=== PATIENT | female | born 1945 | race African-American/Black ===

== ENCOUNTER 2016-05-20 08:50 | Emergency (ER) | payer MEDICARE, MEDICAID ==
[~2016-05-20] VITALS: Ht 162.6 cm; Wt 68.0 kg
[2016-05-20 09:25] VITALS: BP 137/62
[2016-05-20] MEDS: ACETAMINOPHEN 325MG TABLET PO ONE ×2 (10:33→11:04)
== END 2016-05-20 12:31 | disposition home or self-care (01) ==
LOC: ER 09:36
DX: M19.90 Unspecified osteoarthritis, unspecified site (principal); E11.9 Type 2 diabetes mellitus without complications; E78.00 Pure hypercholesterolemia, unspecified; J45.909 Unspecified asthma, uncomplicated; I10 Essential (primary) hypertension; M10.9 Gout, unspecified
CPT/HCPCS: 73070; 99284

== ENCOUNTER → 2016-08-27 | Outpatient (CLI) | payer MEDICARE, MEDICAID | END | disposition home or self-care (01) | LOC: MAMMO 09:59 | PROVIDERS: ATTEND Specialist | DX: Z12.31 Encounter for screening mammogram for malignant neoplasm of breast (principal) | CPT/HCPCS: 82962; G0202 ==

== ENCOUNTER 2016-10-25 17:26 | Emergency (ER) | payer MEDICARE, MEDICAID ==
[~2016-10-25] VITALS: Ht 160 cm; Wt 68.0 kg
[2016-10-25 18:48] LABS: BASOPHILS % 0.9 % (0.0-2.0); EOSINOPHILS % 0.8 % (0.0-5.0); HEMATOCRIT. 38.1 % (36.0-48.0); HEMOGLOBIN. 12.9 g/dL (12.0-16.0); LYMPHOCYTES % 41.4 % (20.0-50.0); MEAN CORPUSCULAR HEMOGLOBIN 30.9 pg (28.0-32.0); MEAN CORPUSCULAR VOLUME 91.2 fL (81.0-99.0); MEAN PLATELET VOLUME 8.8 fl (7.4-10.4); MONOCYTES % 7.5 % (2.0-8.0); NEUTROPHILS % 49.4 % (40.0-76.0); PLATELET 224 x1000/uL (130-400); RED BLOOD CELL COUNT 4.18 mill/uL (4.2-5.4); RED CELL DISTRIBUTION WIDTH 14.1 % (11.6-14.6)
[2016-10-25 18:51] LABS: CHLORIDE 108 mEq/L (98-107)
[2016-10-25 18:53] LABS: CARBON DIOXIDE 23 mEq/L (21-32)
[2016-10-25 19:01] LABS: TROPONIN I < 0.02 ng/mL (0.00-0.04)
[2016-10-25 20:15] VITALS: BP 128/72
== END 2016-10-25 20:20 | disposition home or self-care (01) ==
LOC: ER 17:52
DX: R06.00 Dyspnea, unspecified (principal); I10 Essential (primary) hypertension; E11.9 Type 2 diabetes mellitus without complications; E78.00 Pure hypercholesterolemia, unspecified; I25.2 Old myocardial infarction; J45.909 Unspecified asthma, uncomplicated; Z86.73 Personal history of transient ischemic attack (TIA), and cerebral infarction without residual deficits; Z88.8 Allergy status to other drugs, medicaments and biological substances
CPT/HCPCS: 36415; 71010; 80053; 83690; 83880; 84484; 85025; 85610; 85730; 93005; 99285

== ENCOUNTER → 2016-11-20 | Outpatient (CLI) | payer MEDICARE, MEDICAID ==
[~2016-11-20] MED LIST: BARIUM SULFATE 450ML ORAL SUSP ONE
== END | disposition home or self-care (01) ==
LOC: CT 08:12
PROVIDERS: ATTEND Internal Medicine Gastroenterology
DX: K86.89 Other specified diseases of pancreas (principal); M47.817 Spondylosis without myelopathy or radiculopathy, lumbosacral region; I25.10 Atherosclerotic heart disease of native coronary artery without angina pectoris; K56.69 Other intestinal obstruction
CPT/HCPCS: 74176

== ENCOUNTER → 2017-08-28 | Outpatient (CLI) | payer MEDICARE, MEDICAID | END | disposition home or self-care (01) | LOC: MAMMO 09:40 | PROVIDERS: ATTEND Specialist | DX: Z12.31 Encounter for screening mammogram for malignant neoplasm of breast (principal) | CPT/HCPCS: 77067 ==

== ENCOUNTER → 2017-10-23 | Outpatient (CLI) | payer MEDICARE, MEDICAID | END | disposition home or self-care (01) | LOC: RAD 09:39 | PROVIDERS: ATTEND Specialist | DX: J84.10 Pulmonary fibrosis, unspecified (principal) | CPT/HCPCS: 71046 ==

== ENCOUNTER 2018-05-19 06:00 | Emergency (ER) | payer MEDICARE, MEDICAID ==
[~2018-05-19] VITALS: Ht 160 cm; Wt 68.0 kg
[2018-05-19] MEDS ORDERED: ALBUTEROL (0.083%) 2.5MG/3ML NEB HHN STA (06:47)
[2018-05-19] MEDS ORDERED: IPRATROPIUM BROMIDE (0.02%) 0.5MG/2.5ML NEB HHN STA (06:47)
[2018-05-19] MEDS ORDERED: METHYLPREDNISOLONE SOD SUCC 125 MG/2 ML VIAL IV STA (06:47)
[2018-05-19] MEDS ORDERED: MAGNESIUM 2 G PREMIX 50 ML IV ONE (07:00)
[2018-05-19] MEDS ORDERED: ACETAMINOPHEN 325MG TABLET PO ONE (07:00)
[2018-05-19 07:16] LABS: BASOPHILS % 0.8 % (0.0-2.0); EOSINOPHILS % 2.5 % (0.0-5.0); HEMATOCRIT. 35.6 % (36.0-48.0); HEMOGLOBIN. 11.6 g/dL (12.0-16.0); LYMPHOCYTES % 29.3 % (20.0-50.0); MEAN CORPUSCULAR HEMOGLOBIN 30.4 pg (28.0-32.0); MEAN CORPUSCULAR VOLUME 92.8 fL (81.0-99.0); MEAN PLATELET VOLUME 8.5 fl (7.4-10.4); MONOCYTES % 6.6 % (2.0-8.0); NEUTROPHILS % 60.8 % (40.0-76.0); PLATELET 222 x1000/uL (130-400); RED BLOOD CELL COUNT 3.83 mill/uL (4.2-5.4); RED CELL DISTRIBUTION WIDTH 13.6 % (11.6-14.6)
[2018-05-19 07:21] LABS: CHLORIDE 111 mEq/L (98-107)
[2018-05-19 09:30] VITALS: BP 127/76
== END 2018-05-19 09:48 | disposition home or self-care (01) ==
LOC: ER 06:00
DX: J44.1 Chronic obstructive pulmonary disease with (acute) exacerbation (principal); J98.01 Acute bronchospasm; J06.9 Acute upper respiratory infection, unspecified; B34.9 Viral infection, unspecified; R51 Headache; D64.9 Anemia, unspecified; E11.9 Type 2 diabetes mellitus without complications; E78.00 Pure hypercholesterolemia, unspecified; I10 Essential (primary) hypertension; I25.2 Old myocardial infarction; Z88.8 Allergy status to other drugs, medicaments and biological substances; Z86.73 Personal history of transient ischemic attack (TIA), and cerebral infarction without residual deficits
CPT/HCPCS: 36415; 71045; 80053; 82962; 85025; 93005; 94644; 96365; 96375; 99285; J2930; J3475; J7611

== ENCOUNTER → 2018-12-01 | Outpatient (CLI) | payer MEDICARE, MEDICAID | END | disposition home or self-care (01) | LOC: RAD 08:28 | PROVIDERS: ATTEND Specialist | DX: R91.8 Other nonspecific abnormal finding of lung field (principal) | CPT/HCPCS: 71046 ==

== ENCOUNTER → 2021-01-14 | Day surgery (SDC) | payer MEDICARE, MEDICAID ==
[~2021-01-14] VITALS: Ht 160 cm; Wt 68.0 kg
[~2021-01-14] MED LIST changes: +ACETAMINOPHEN 500MG TABLET ONE; +AMLO5TAB88 PO; +BACITRACIN 15GM TUBE TOP ONE; -BARIUM SULFATE 450ML ORAL SUSP ONE; +BUPIVACAINE HCL/PF 0.5% (5MG/ML) 10ML ONE; +CEFAZOLIN SODIUM 1000MG/VIAL ONE; +DEXAMETHASONE 4MG/ML 1ML VIAL ONE; +EPHEDRINE SULFATE 50MG/ML VIAL ONE; +FENTANYL CITRATE/PF 50MCG/ML 2ML VIAL IV PRN; +FENTANYL CITRATE/PF 50MCG/ML 2ML VIAL ONE; +GABA-529 PO; +GENTAMICIN SULF 40MG/ML 2ML VIAL ONE; +HYDROMORPHONE HCL/PF 2MG/ML CPJ IV PRN; +KETOROLAC 30MG/ML VIAL ONE; +LEVO75TA7 PO; +LIDOCAINE HCL 1% 10 MG/ML 10ML VIAL ONE; +METO-396 PO; +PITA2TAB2 PO; +PROPOFOL 200MG/20ML VIAL IV ONE; +SEMA0.25 SQ; +TRIAMCINOLONE ACETONIDE 40MG/ML 1ML VIAL ONE
== END | disposition home or self-care (01) ==
LOC: OR 11:06
PROVIDERS: ATTEND Podiatrist Foot & Ankle Surgery
DX: M21.612 Bunion of left foot (principal); I10 Essential (primary) hypertension; E03.9 Hypothyroidism, unspecified; E11.9 Type 2 diabetes mellitus without complications; E78.00 Pure hypercholesterolemia, unspecified; Z79.84 Long term (current) use of oral hypoglycemic drugs; Z79.899 Other long term (current) drug therapy; Z98.890 Other specified postprocedural states; Z20.822 Contact with and (suspected) exposure to COVID-19
CPT/HCPCS: 28296; 73630; 82962; 83036; 87426; 88305; 88311; J0690; J1100; J1885; J2704; J3010; J3301; J3490; J1580

== ENCOUNTER → 2022-11-26 | Outpatient (CLI) | payer MEDICARE, MEDICAID ==
[~2022-11-26] MED LIST changes: -ACETAMINOPHEN 500MG TABLET ONE; -BACITRACIN 15GM TUBE TOP ONE; -BUPIVACAINE HCL/PF 0.5% (5MG/ML) 10ML ONE; -CEFAZOLIN SODIUM 1000MG/VIAL ONE; -DEXAMETHASONE 4MG/ML 1ML VIAL ONE; -EPHEDRINE SULFATE 50MG/ML VIAL ONE; -FENTANYL CITRATE/PF 50MCG/ML 2ML VIAL IV PRN; -FENTANYL CITRATE/PF 50MCG/ML 2ML VIAL ONE; -GENTAMICIN SULF 40MG/ML 2ML VIAL ONE; -HYDROMORPHONE HCL/PF 2MG/ML CPJ IV PRN; -KETOROLAC 30MG/ML VIAL ONE; -LIDOCAINE HCL 1% 10 MG/ML 10ML VIAL ONE; -PROPOFOL 200MG/20ML VIAL IV ONE; -TRIAMCINOLONE ACETONIDE 40MG/ML 1ML VIAL ONE
== END | disposition home or self-care (01) ==
LOC: MRI 08:05
PROVIDERS: ATTEND Internal Medicine Gastroenterology
DX: K85.90 Acute pancreatitis without necrosis or infection, unspecified (principal)
CPT/HCPCS: 74181

== ENCOUNTER 2023-12-17 08:11 | Emergency (ER) | payer MEDICARE, MEDICAID ==
[~2023-12-17] VITALS: Ht 165.1 cm; Wt 85.0 kg
[2023-12-17 08:14] VITALS: O2SAT 99
[2023-12-17 08:45] LABS: HEMOGLOBIN. 12.2 g/dL (12.0-16.0); PLATELET 217 x1000/uL (130-400)
[2023-12-17 08:49] LABS: BASOPHILS % 0.4 % (0.0-2.0); EOSINOPHILS % 2.9 % (0.0-5.0); HEMATOCRIT. 36.2 % (36.0-48.0); LYMPHOCYTES % 37.8 % (20.0-50.0); MEAN CORPUSCULAR HEMOGLOBIN 31.2 pg (28.0-32.0); MEAN CORPUSCULAR HGB CONC 33.7 g/dL (31.0-37.0); MEAN CORPUSCULAR VOLUME 92.6 fL (81.0-99.0); MEAN PLATELET VOLUME 7.9 fl (7.4-10.4); MONOCYTES % 4.6 % (2.0-8.0); NEUTROPHILS % 54.3 % (40.0-76.0); RED BLOOD CELL COUNT 3.91 mill/uL (4.2-5.4); RED CELL DISTRIBUTION WIDTH 13.7 % (11.6-14.6); WHITE BLOOD COUNT 6.3 x1000/uL (4.5-11.0)
[2023-12-17 08:57] LABS: DIFFERENTIAL COMMENT 1
[2023-12-17 08:59] LABS: POTASSIUM 4.6 mEq/L (3.5-5.1)
[2023-12-17 09:01] LABS: CALCIUM 9.5 mg/dL (8.7-10.4)
[2023-12-17 09:05] LABS: CREATININE 1.1 mg/dL (0.6-1.0)
[2023-12-17 09:09] VITALS: TEMP 98.2
[2023-12-17] MEDS: AMLODIPINE 10MG TABLET PO ONE (09:09)
[2023-12-17] MEDS: ACETAMINOPHEN 325MG TABLET PO ONE (09:09)
[2023-12-17] MEDS ORDERED: HYDR50TA40 MT (10:08)
[2023-12-17] MEDS: IBUPROFEN 600MG TABLET PO ONE (10:34)
[2023-12-17 10:43] VITALS: BP 169/70; PULSE 75; RESP 19; O2SAT 99
== END 2023-12-17 10:44 | disposition home or self-care (01) ==
LOC: ER 08:11
DX: I16.0 Hypertensive urgency (principal); I10 Essential (primary) hypertension; E11.9 Type 2 diabetes mellitus without complications; E78.00 Pure hypercholesterolemia, unspecified; J45.909 Unspecified asthma, uncomplicated; Z86.73 Personal history of transient ischemic attack (TIA), and cerebral infarction without residual deficits; Z79.899 Other long term (current) drug therapy; Z79.85 Long-term (current) use of injectable non-insulin antidiabetic drugs
CPT/HCPCS: 36415; 80048; 85025; 93005; 99284

== ENCOUNTER 2024-06-15 02:28 | Emergency (ER) | payer MEDICARE, MEDICAID ==
[~2024-06-15 02:28] MED LIST changes: +BACL-141 GT; +BRIM15DR2 EACHEYE; +CETI10TA6 MT; +CYCL30DR EACHEYE; +ESCI-7; +FURO40TA5 MT; +HYDR-3782 MT; +HYDR50TA40 MT; +MAGN400T26 PO
[2024-06-15 03:27] LABS: EOSINOPHILS % 1.9 % (0.0-5.0); HEMATOCRIT. 31.2 % (36.0-48.0); HEMOGLOBIN. 10.1 g/dL (12.0-16.0); LYMPHOCYTES % 40.5 % (20.0-50.0); MEAN CORPUSCULAR HEMOGLOBIN 30.9 pg (28.0-32.0); MEAN CORPUSCULAR HGB CONC 32.3 g/dL (31.0-37.0); MEAN CORPUSCULAR VOLUME 95.7 fL (81.0-99.0); MEAN PLATELET VOLUME 8.7 fl (7.4-10.4); NEUTROPHILS % 49.6 % (40.0-76.0); PLATELET 242 x1000/uL (130-400); RED BLOOD CELL COUNT 3.26 mill/uL (4.2-5.4); RED CELL DISTRIBUTION WIDTH 16.3 % (11.6-14.6); WHITE BLOOD COUNT 6.5 x1000/uL (4.5-11.0)
[2024-06-15 03:47] LABS: CHLORIDE 110 mEq/L (98-107); SODIUM 141 mEq/L (136-145)
[2024-06-15 03:48] LABS: CALCIUM 9.1 mg/dL (8.7-10.4); CARBON DIOXIDE 28 mEq/L (21-32)
[2024-06-15 03:53] LABS: GLUCOSE 192 mg/dL (70-105); TROPONIN I HIGH SENSITIVITY 12 ng/L (3.0-34); UREA NITROGEN BLOOD 23 mg/dL (9-23)
[2024-06-15] MEDS: DIPHENHYDRAMINE 50MG/ML VIAL IV ONE (03:53)
[2024-06-15] MEDS: CLONIDINE 0.1MG TABLET PO ONE (03:53)
[2024-06-15] MEDS: LABETALOL 5MG/ML 4ML INJ IV ONE (03:53)
[2024-06-15] MEDS: METOCLOPRAMIDE HCL 10MG/2ML VIAL IV ONE (03:53)
[2024-06-15] MEDS: SODIUM CHLORIDE 0.9% 1,000 ML IV ONE (03:53)
[2024-06-15] MEDS: KETOROLAC 15MG/ML VIAL IV ONE (03:53)
[2024-06-15 03:58] VITALS: TEMP 36.7
[2024-06-15 04:37] VITALS: BP 165/64; PULSE 79; RESP 17; O2SAT 100
== END 2024-06-15 04:48 | disposition home or self-care (01) ==
LOC: ER 02:28
DX: I11.0 Hypertensive heart disease with heart failure (principal); I50.9 Heart failure, unspecified; E11.9 Type 2 diabetes mellitus without complications; Z88.8 Allergy status to other drugs, medicaments and biological substances; Z79.899 Other long term (current) drug therapy; Z79.890 Hormone replacement therapy; Z79.85 Long-term (current) use of injectable non-insulin antidiabetic drugs; Z79.621 Long term (current) use of calcineurin inhibitor; Z98.890 Other specified postprocedural states
CPT/HCPCS: 99284; 96374; 96375; 80048; 85025; 84484; 36415; 93005; J1885; J1200; J3490; J2765

== ENCOUNTER 2024-06-18 07:19 | Emergency (ER) | payer MEDICARE, MEDICAID ==
[~2024-06-18] VITALS: Ht 167.6 cm; Wt 68.0 kg
[2024-06-18 07:29] VITALS: O2SAT 99
[2024-06-18 08:23] LABS: BASOPHILS % 1.1 % (0.0-2.0); EOSINOPHILS % 3.4 % (0.0-5.0); HEMATOCRIT. 32.4 % (36.0-48.0); HEMOGLOBIN. 10.9 g/dL (12.0-16.0); LYMPHOCYTES % 39.3 % (20.0-50.0); MEAN CORPUSCULAR HEMOGLOBIN 31.6 pg (28.0-32.0); MEAN CORPUSCULAR HGB CONC 33.7 g/dL (31.0-37.0); MEAN CORPUSCULAR VOLUME 93.9 fL (81.0-99.0); MEAN PLATELET VOLUME 8.6 fl (7.4-10.4); MONOCYTES % 6.9 % (2.0-8.0); NEUTROPHILS % 49.3 % (40.0-76.0); PLATELET 263 x1000/uL (130-400); RED BLOOD CELL COUNT 3.45 mill/uL (4.2-5.4); RED CELL DISTRIBUTION WIDTH 16.2 % (11.6-14.6); WHITE BLOOD COUNT 5.2 x1000/uL (4.5-11.0)
[2024-06-18] MEDS: ACETAMINOPHEN 500MG TABLET PO NR (08:27)
[2024-06-18 08:32] LABS: CHLORIDE 112 mEq/L (98-107); POTASSIUM 4.3 mEq/L (3.5-5.1); SODIUM 142 mEq/L (136-145)
[2024-06-18 08:33] LABS: CARBON DIOXIDE 25 mEq/L (21-32)
[2024-06-18 08:34] LABS: CALCIUM 8.7 mg/dL (8.7-10.4)
[2024-06-18 08:39] LABS: GLUCOSE 210 mg/dL (70-105); UREA NITROGEN BLOOD 18 mg/dL (9-23)
[2024-06-18] MEDS: HYDRALAZINE HCL 50MG TABLET PO ONE (08:56)
[2024-06-18 08:57] VITALS: BP 158/72; PULSE 72; RESP 16; TEMP 36.8; O2SAT 99
[2024-06-18] MEDS: METOPROLOL SUCCINATE 50MG ER TABLET PO STA (08:57)
[2024-06-18 09:26] LABS: TROPONIN I HIGH SENSITIVITY 9 ng/L (3.0-34)
== END 2024-06-18 09:05 | disposition home or self-care (01) ==
LOC: ER 07:19
DX: R51.9 Headache, unspecified (principal); I10 Essential (primary) hypertension; E03.9 Hypothyroidism, unspecified; E11.9 Type 2 diabetes mellitus without complications; Z79.621 Long term (current) use of calcineurin inhibitor; Z79.85 Long-term (current) use of injectable non-insulin antidiabetic drugs; Z79.890 Hormone replacement therapy; Z79.899 Other long term (current) drug therapy; Z88.8 Allergy status to other drugs, medicaments and biological substances
CPT/HCPCS: 36415; 71045; 80048; 83880; 84484; 85025; 93005; 99285

== ENCOUNTER 2024-07-06 16:24 | Emergency (ER) | payer MEDICARE, MEDICAID ==
[~2024-07-06] VITALS: Ht 157.5 cm; Wt 61.2 kg
[2024-07-06 16:30] VITALS: O2SAT 99
[2024-07-06 16:57] LABS: CLARITY URINE CLEAR (CLEAR); COLOR URINE YELLOW (YELLOW); GLUCOSE URINE NEGATIVE (NEGATIVE); KETONES URINE NEGATIVE (NEGATIVE); LEUKOCYTE ESTERASE URINE NEGATIVE (NEGATIVE); NITRITE URINE NEGATIVE (NEGATIVE); OCCULT BLOOD URINE NEGATIVE (NEGATIVE); PH URINE 6.5 (4.5-8.0); PROTEIN URINE 3+ (NEGATIVE); SPECIFIC GRAVITY URINE 1.005 (1.005-1.030); UROBILINOGEN URINE 0.2 E.U./dL (0.2-1.0)
[2024-07-06 17:10] LABS: BACTERIA URINE TRACE; SQUAMOUS EPITHELIAL CELL URINE 1+ /lpf (RARE/1+)
[2024-07-06 17:11] LABS: RBC URINE 0-2 /hpf (0-2); WBC URINE 0-2 /hpf (0-2)
[2024-07-06 17:51] LABS: BASOPHILS % 1.1 % (0.0-2.0); EOSINOPHILS % 2.9 % (0.0-5.0); HEMATOCRIT. 36.1 % (36.0-48.0); LYMPHOCYTES % 42.8 % (20.0-50.0); MEAN CORPUSCULAR HEMOGLOBIN 31.3 pg (28.0-32.0); MEAN CORPUSCULAR HGB CONC 33.1 g/dL (31.0-37.0); MEAN CORPUSCULAR VOLUME 94.4 fL (81.0-99.0); MEAN PLATELET VOLUME 8.5 fl (7.4-10.4); MONOCYTES % 6.1 % (2.0-8.0); NEUTROPHILS % 47.1 % (40.0-76.0); PLATELET 235 x1000/uL (130-400); RED BLOOD CELL COUNT 3.82 mill/uL (4.2-5.4); RED CELL DISTRIBUTION WIDTH 14.5 % (11.6-14.6); WHITE BLOOD COUNT 7.6 x1000/uL (4.5-11.0)
[2024-07-06 17:58] LABS: CHLORIDE 112 mEq/L (98-107); POTASSIUM 4.4 mEq/L (3.5-5.1); SODIUM 142 mEq/L (136-145)
[2024-07-06 17:59] LABS: CALCIUM 9.2 mg/dL (8.7-10.4); CARBON DIOXIDE 25 mEq/L (21-32)
[2024-07-06 18:04] LABS: GLUCOSE 113 mg/dL (70-105); UREA NITROGEN BLOOD 18 mg/dL (9-23)
[2024-07-06] MEDS: SODIUM CHLORIDE 0.9% 1,000 ML IV ONE (18:25)
[2024-07-06] MEDS: MORPHINE SULFATE 4 MG/ML INJ (FOR IV/IM USE) IV STA (18:25)
[2024-07-06] MEDS: METOCLOPRAMIDE HCL 10MG/2ML VIAL IV ONE (18:26)
[2024-07-06] MEDS: HYDRALAZINE HCL 50MG TABLET PO ONE (21:20)
[2024-07-06 22:13] VITALS: BP 166/67; PULSE 72; RESP 16; TEMP 37.1; O2SAT 99
== END 2024-07-06 22:30 | disposition home or self-care (01) ==
LOC: ER 16:24
DX: R51.9 Headache, unspecified (principal); I10 Essential (primary) hypertension; E11.9 Type 2 diabetes mellitus without complications; Z79.621 Long term (current) use of calcineurin inhibitor; Z79.85 Long-term (current) use of injectable non-insulin antidiabetic drugs; Z79.890 Hormone replacement therapy; Z79.899 Other long term (current) drug therapy; Z88.8 Allergy status to other drugs, medicaments and biological substances
CPT/HCPCS: 99285; 96374; 70450; 96375; 80048; 81003; 85025; 36415; 93005; J2765; J2270; J7030

== ENCOUNTER 2024-07-07 03:18 | Emergency (ER) | payer MEDICARE, MEDICAID ==
[~2024-07-07] VITALS: Ht 165.1 cm; Wt 64.0 kg
[2024-07-07 03:36] VITALS: O2SAT 99
[2024-07-07 03:47] VITALS: BP 145/79; PULSE 87; RESP 18; TEMP 36.8; O2SAT 99
== END 2024-07-07 03:55 | disposition left against medical advice (07) ==
LOC: ER 03:18
DX: I10 Essential (primary) hypertension (principal); E11.9 Type 2 diabetes mellitus without complications; Z86.39 Personal history of other endocrine, nutritional and metabolic disease; Z53.21 Procedure and treatment not carried out due to patient leaving prior to being seen by health care provider